=== PATIENT | male | born 1955 | race Caucasian/White ===

== ENCOUNTER 2016-11-25 13:24 | Emergency (ER) | payer OTHER ==
--- NOTE | 2016-11-25 16:59 | DIAGNOSTIC IMAGING REPORT ---
PROCEDURE: XR WRIST MIN 3 VIEWS - LEFT INDICATION: TRAUMA/INJURY, initial encounter TECHNIQUE: Five views COMPARISON: None. FINDINGS: Old avulsion fracture of the triquetrum and distal radius medially. No acute fracture. Scaphoid is normal. Joint spaces are normal. Soft tissue swelling over the dorsum of the wrist. IMPRESSION: 1. Soft tissue swelling 2. Old avulsion fractures of the triquetrum and distal radius
--- NOTE | 2016-11-25 17:02 | DIAGNOSTIC IMAGING REPORT ---
PROCEDURE: XR SHOULDER 2 OR MORE VW-RIGHT INDICATION: TRAUMA/INJURY TECHNIQUE: Four views COMPARISON: None. FINDINGS: No fracture dislocation. Mild AC joint and glenohumeral joint degenerative changes. Soft tissues are unremarkable. IMPRESSION: 1. Mild degenerative changes of the AC and glenohumeral joints
--- NOTE | 2016-11-25 17:27 | ED ORDER SUMMARY ---
..... Patient: MICHELLE GERBER OrderSheet [facility] VisitID: [id number] [place] [address] 61y, M Registration Date/Time: 11/25/2016 ORDER SHEET Weight: 86.1 kg (stated) Allergies: No Known Drug Allergy GENERAL ORDERS: Wrist 3 or 4V Left (in waiting room) Urgent (15:02 11/25/2016 Rodrigo Huff.Inder per protocol) (Ack 15:09 LTapper) (15:26 Merna R.N.) Shoulder 2V or more Right Urgent (16:35 11/25/2016 HBivens A.R.N.P.) (Ack 16:44 LTapper) (16:58 [facility]) Basilio Wrap (17:25 11/25/2016 HBivens A.R.N.P.) MEDICATION ORDERS: IV FLUIDS: ORDER SHEET NOTES: [Electronically signed by Renea Sharma.R.N.P. (18:23 11/25/2016)] [Electronically signed by Jabari Tinajero R.N. (19:22 11/25/2016)] [Electronically locked/signed by Jabari Tinajero R.N. (19:22 11/25/2016)]
--- NOTE | 2016-11-25 17:27 | ED CLINICAL REPORT ---
Clinical Report - Physicians/Mid Levels [facility] [address] [place] [address] 11/25/2016 13:27 Patient: MICHELLE GERBER Time Seen: 16:22; initial patient contact, initial documentation, patient care assumed. Arrived- By private vehicle. Historian- patient. HISTORY OF PRESENT ILLNESS Chief Complaint: FALL. Location of injuries- right shoulder and left wrist. The injury occurred yesterday. Fell while walking and landed on a concrete surface; slipped (slipped on ice). Occurred at work. The patient complains of moderate pain. No blow to the head, neck pain, loss of consciousness or seizure. Not dazed. REVIEW OF SYSTEMS No numbness, chest pain, difficulty breathing, weakness or abdominal pain. He sustained skin laceration but has no pain on weight bearing. All systems otherwise negative, except as recorded above. PAST HISTORY See nurses notes. PROBLEMS: Hypertension. --14:55 Giana Rausch RMal. ADDITIONAL SURGERIES: no known surgeries. SOCIAL HISTORY Never smoker. No alcohol use or drug use. No recent travel. Is a local resident. FAMILY HISTORY No significant family medical history. ADDITIONAL NOTES The nursing notes have been reviewed with agreement regarding the chief complaint, HPI, ROS, PMH and patient medications and allergies. PHYSICAL EXAM Vital Signs: 11/25/2016 14:51 BP: 152/99. HR: 85. RR: 18. O2 saturation: 96%. Temp: 98.1 F. Pain level now: 8/10. Have been reviewed as abnormal and appear to be correct. Hypertensive. Heart rate normal. Respiratory rate normal. Temperature normal. Oxygen saturation normal. Appearance: Alert. Oriented X3. No acute distress. Head: Head non-tender. No swelling of head. Eyes: Pupils equal, round and reactive to light. EOM intact. ENT: No dental injury. Pharynx normal. Neck: Painless ROM. Non-tender. CVS: Heart sounds normal. Pulses normal. Respiratory: Breath sounds normal. Chest nontender. Abdomen: No visible injury. Soft and nontender. Back: No tenderness. ROM normal. Skin: Skin intact. Skin warm and dry. Normal skin color. Normal skin turgor. Extremities: Abnormal inspection. Extremities not atraumatic. Right shoulder: mild tenderness located in the acromion process. Limited ROM due to pain (diminished abduction, flexion, extension and external and internal rotation). Neurovascular intact distally. No erythema, swelling, abrasion, ecchymosis or puncture wound. No foreign body or deformity. No joint effusion. Left wrist: mild tenderness and swelling located in the dorsal aspect of the wrist. Limited ROM secondary to pain (diminished flexion and extension, ulnar deviation and radial deviation). Neurovascular intact distally. No erythema, laceration, abrasion, ecchymosis or puncture wound. No foreign body or deformity. No joint effusion. Neuro: Oriented X 3. No motor deficit. No sensory deficit. LABS, X-RAYS, AND EKG X-Rays: Right shoulder. Left wrist negative. Rt Shoulder X-ray: (IMPRESSION: 1. Mild degenerative changes of the AC and glenohumeral joints Electronically Final signed by:David Sierra MD 11/25/2016 5:02:08 PM). The X-rays were interpreted by the radiologist and contemporaneously by me. Lt Wrist X-ray: (IMPRESSION: 1. Soft tissue swelling 2. Old avulsion fractures of the triquetrum and distal radius Electronically Final signed by:David Sierra MD 11/25/2016 4:59:20 PM). PROGRESS AND PROCEDURES Patient counseled in person regarding the patient's stable condition, test results and diagnosis. 17:15. Differential Diagnosis: Other possible considerations: fall, fx, sprains, contusions. Above considerations are based on history, physical exam and X-Ray data. Differential diagnosis was discussed with patient. Disposition: Discharged home in good and unchanged condition (17:27). Condition: good and stable. CLINICAL IMPRESSION Sprain of the right AC joint and left radiocarpal joint. Fall on same level by slipping. INSTRUCTIONS Wear elastic wrap (Basilio wrap) as directed for one weeks until better. Warnings: GENERAL WARNINGS: Return or contact your physician immediately if your condition worsens or changes unexpectedly, if not improving as expected, or if other problems arise. SPECIFICALLY, return if you develop numbness or incontinence of feces (loss of bowel control) or urine (loss of bladder control). trouble breathing, chest pain. Prescription Medications: Naproxen 500 mg tablets: take 1 orally every 12 hours as needed for pain. Dispense twenty (20). No refills. Follow-up: Follow up with your doctor in about one week even if well. Call for an appointment. Summary of care provided to patient. Understanding of the discharge instructions verbalized by patient. (Electronically signed by Renea Sharma A.R.N.P. 11/25/2016 18:23)
--- NOTE | 2016-11-25 17:27 | ED ORDER SUMMARY ---
..... Patient: MICHELLE GERBER OrderSheet [facility] VisitID: [id number] [place] [address] 61y, M Registration Date/Time: 11/25/2016 ORDER SHEET Weight: 86.1 kg (stated) Allergies: No Known Drug Allergy GENERAL ORDERS: Wrist 3 or 4V Left (in waiting room) Urgent (15:02 11/25/2016 Rodrigo Huff.Inder per protocol) (Ack 15:09 LTapper) (15:26 Merna R.N.) Shoulder 2V or more Right Urgent (16:35 11/25/2016 HBivens A.R.N.P.) (Ack 16:44 LTapper) (16:58 [facility]) Basilio Wrap (17:25 11/25/2016 HBivens A.R.N.P.) MEDICATION ORDERS: IV FLUIDS: ORDER SHEET NOTES: [Electronically signed by Renea Sharma.R.N.P. (18:23 11/25/2016)] [Electronically signed by Jabari Tinajero R.N. (19:22 11/25/2016)] [Electronically locked/signed by Jabari Tinajero R.N. (19:22 11/25/2016)]
--- NOTE | 2016-11-25 17:27 | ED NURSING NOTES ---
Clinical Report - Nurses [place] [address] [place] [address] 11/25/2016 13:27 Patient: MICHELLE GERBER TRIAGE Triage time 14:52. Acuity: LEVEL 4. Chief Complaint: FALL while walking, onto the ice. Alert. No acute distress. YAJAIRA COMA SCORE: [place] Coma Scale: 15- eyes open spontaneously (4); best verbal response- oriented x 4 (5); best motor response- obeys commands (6). --15:01 Giana Rausch R.N. 14:51 11/25/16. BP: 152/99. HR: 85. RR: 18. O2 saturation: 96% on room air. Temp: 98.1 F (oral). Pain level now: 06/29. --15:01 Giana Rausch R.N. Weight: 86.1 kg stated. Height/Length: 72 inches Per Patient. BMI: 25.8. --14:55 Giana Rausch R.N. Medications HCTZ 25 mg, daily. --14:55 Giana Rausch R.N. Allergies No Known Drug Allergy. --14:55 Giana Rausch R.N. History Arrived by private vehicle. Historian: patient. Unaccompanied. Primary physician (Sadi). Location of injuries: right shoulder and left wrist. This occurred yesterday. Occurred at work. SOCIAL HX: Smoker- current status unknown (no). No alcohol use or drug use. FALL RISK ASSESSMENT: Fall risk assessment completed. No fall risk identified. FUNCTIONAL ASSESSMENT: Functional assessment: no impairments noted. LEARNING NEEDS ASSESSMENT: The learning needs assessment revealed no barriers. --15:01 Giana Rausch R.N. PROBLEMS: Hypertension. --14:55 Giana Rausch R.N. ADDITIONAL SURGERIES: no known surgeries. Assessment GENERAL / NEURO / PSYCH: Alert. Oriented X 4. Appears in no acute distress. Patient appears calm and cooperative. ( left wrist swelling). RESPIRATORY: Respirations not labored. SKIN: Skin is warm and dry. --15:01 Giana Rausch R.N. Interventions ID band on patient. To treatment room. --15:01 Giana Rausch R.N. PHYSICAL ASSESSMENT Ambulatory to room. GENERAL / NEURO / PSYCH: Alert. Oriented X 4. Appears in pain. HEENT: Pupils equal, round and reactive to light. Head non-tender. RESPIRATORY: Respirations not labored. Chest nontender. Breath sounds within normal limits. CVS: Normal heart rate and rhythm. Pulses within normal limits. Capillary refill less than 2 seconds. GI / : Abdomen soft and nontender. EXTREMITIES: Extremities exhibit normal ROM. Neuro-vascular status intact to the extremity. Left wrist: tenderness and erythema. Dorsal left hand: tenderness, swelling and erythema. SKIN: Skin intact. Skin is warm and dry. --16:20 Jabari Tinajero R.N. NURSING PROGRESS NOTES 15:01 ice pack to left wrist. --15:02 Giana Rausch R.N. The initial plan of care for this patient includes an assessment with efforts to address patient positioning; impairment of the musculoskeletal system. Cold pack applied. Reassurance given. Call light placed in reach. Bed placed in lowest position. Brakes of bed on. --16:23 Jabari Tinajero R.N. 16:20 11/25/16. BP: 145/92. HR: 85. RR: 18. O2 saturation: 98%. Temp: 98.4 F. Pain level now 8/10. --16:23 Jabari Tinajero R.N. ( rishi wrap applied + good csm noted. Care instructions given all questions answered.). --17:45 Jabari Tinajero R.N. DISPOSITION / DISCHARGE Departure time: 17:40 Nov 25 2016. Condition at departure: improved. No learning barriers present. Discharge instructions provided and reviewed with the patient. Reviewed warnings. Reviewed medication(s). Treatments reviewed. Patient verbalized understanding. Written instructions provided in British. The patient was discharged home. He left the Emergency Department ambulatory and via private vehicle. Family member driving. --17:44 Jabari Tinajero R.N. 17:40 11/25/16. BP: 148/90. HR: 82. RR: 18. O2 saturation: 100%. Temp: 98.4 F. Pain level now 12/30. --17:44 Jabari Tinajero R.N. Locked/Released at 11/25/2016 19:22 by Jabari Tinajero R.N.
--- NOTE | 2016-11-25 19:23 | ED MAR SUMMARY ---
..... Medication Administration Record [facility] [address] [place], [place] [id number] Patient: MICHELLE GERBER Visit ID: [id number] 61y, M Weight: 86.1 kg Height/Length: 72 in BMI: 25.8 ALLERGIES: No Known Drug Allergy
--- NOTE | 2016-11-25 19:23 | ED MED RECONCILIATION SUMMARY ---
Patient: MICHELLE GERBER Medication Reconciliation Report [facility] VisitID: [id number] [address] [place] [address] 61y, M Registration Date/Time: 11/25/2016 Weight: 86.1 kg Height/Length: 72 in. BMI: 25.8 ALLERGIES: No Known Drug Allergy The patient's Home Medications are listed below: THE FOLLOWING MEDICATIONS NEED TO BE RECONCILED: HCTZ 25 mg, daily The source(s) of the original Home Medication information: Not obtained. The following Medications were given to the patient in the Emergency Department: None. The following Medications were prescribed to the patient: Naproxen 500 mg tablets: take 1 orally every 12 hours as needed for pain. Dispense twenty (20). No refills. -- Renea Sharam A.R.N.P.
--- NOTE | 2016-11-25 19:23 | ED DISCHARGE INSTRUCTIONS ---
Patient: MICHELLE GERBER General Instructions [facility] VisitID: [id number] [place] [address] 61y, M Registration Date/Time: 11/25/2016 Sprain of the right AC joint and left radiocarpal joint. Fall on same level by slipping. INSTRUCTIONS Wear elastic wrap (Basilio wrap) as directed for one weeks until better. Warnings: GENERAL WARNINGS: Return or contact your physician immediately if your condition worsens or changes unexpectedly, if not improving as expected, or if other problems arise. SPECIFICALLY, return if you develop numbness or incontinence of feces (loss of bowel control) or urine (loss of bladder control). trouble breathing, chest pain. Prescription Medications: Naproxen 500 mg tablets: take 1 orally every 12 hours as needed for pain. Dispense twenty (20). No refills. Follow-up: Follow up with your doctor in about one week even if well. Call for an appointment. Summary of care provided to patient. Understanding of the discharge instructions verbalized by patient. ADDITIONAL INFORMATION Mechanical Fall You have had a fall today. It appears that the cause is mechanical. That means that you slipped, tripped or lost your balance. If your fall had been due to fainting or a seizure, further tests would be required. Home Care: Rest today and resume your normal activities when you are feeling back to normal. If you were injured during the fall, follow the advice from your doctor regarding care of your injury. You may use acetaminophen (Tylenol) or ibuprofen (Motrin, Advil) to control pain, unless another pain medicine was prescribed. [NOTE: If you have chronic liver or kidney disease or ever had a stomach ulcer or GI bleeding, talk with your doctor before using these medicines.] Fall Prevention: Was there anything that caused your fall that can be fixed, removed, or replaced? Make your home safe by keeping walkways clear of objects you may trip over. Use non-slip pads under rugs. Do not walk in poorly lit areas. Do not stand on chairs or wobbly ladders. Use caution when reaching overhead or looking upward. This position can cause a loss of balance. Be sure your shoes fit properly, have non-slip bottoms and are in good condition. Be cautious when going up and down curbs, and walking on uneven sidewalks. If your balance is poor, consider using a cane or walker. Stay as active as you can. Balance, flexibility, strength, and endurance all come from exercise. They all play a role in preventing falls. Follow Up with your doctor or as advised by our staff. Get Prompt Medical Attention if any of the following occur: Repeated mechanical falls, or unexplained falls Dizziness, fainting or seizure Severe headache Chest pain or shortness of breath Palpitations (very rapid or very slow or irregular heartbeat) Blood in vomit, stools (black or red color) Weakness of an arm or leg or one side of the face Difficulty with speech or vision Shoulder Sprain A sprain is a stretching or tearing of the ligaments that hold a joint together. A sprain may take up to six weeks to fully heal, depending on how severe it is. Moderate to severe shoulder sprains are treated with a sling or shoulder immobilizer. Minor sprains can be treated without any special support. Home care The following guidelines will help you care for your injury at home: If a sling was provided, leave it in place for the time advised by your doctor. If you are unsure how long to wear it, ask for advice. If the sling becomes loose, adjust it so that your forearm is level with the ground and the shoulder feels well supported. Apply an ice pack (ice cubes in a plastic bag, wrapped in a thin towel) over the injured area for 20 minutes every 12 hours the first day. Continue with ice packs 34 times a day for the next two days, then as needed for the relief of pain and swelling. You may use acetaminophen or ibuprofen to control pain, unless another pain medicine was prescribed.If you have chronic liver or kidney disease or ever had a stomach ulcer or GI bleeding, talk with your doctor before using these medicines. Shoulder joints become stiff if left in a sling for too long. Range of motion exercises should usually be started within the first ten days after injury. Consult your doctor on what type of exercises to do and how soon to start. Follow-up care Follow up with your doctor as directed. Any X-rays you had today dont show any broken bones, breaks, or fractures. Sometimes fractures dont show up on the first X-ray. Bruises and sprains can sometimes hurt as much as a fracture. These injuries can take time to heal completely. If your symptoms dont improve or they get worse, talk with your doctor. You may need a repeat X-ray. When to seek medical care Get prompt medical attention if any of the following occur: Increasing shoulder pain or arm swelling Fingers become cold, blue, numb, or tingly Large amount of bruising of the shoulder or upper arm Sprain, Wrist A sprain is an injury to the ligaments or capsule that holds a joint together. There are no broken bones. Most sprains take about three to six weeks to heal. If the ligament is completely torn (severe sprain), it can take months to recover. Most wrist sprains are treated with a splint, wrist brace or elastic wrap for support. Severe sprains may require surgery. Home care The following guidelines will help you care for your injury at home: 1) Keep your arm elevated to reduce pain and swelling. This is very important during the first 48 hours. 2) Apply an ice pack (ice cubes in a plastic bag, wrapped in a towel) over the injured area for 20 minutes every 12 hours the first day. Continue with ice packs 34 times a day for the next two days, then as needed for the relief of pain and swelling. 3) You may use acetaminophen or ibuprofen to control pain, unless another pain medicine was prescribed.If you have chronic liver or kidney disease or ever had a stomach ulcer or GI bleeding, talk with your doctor before using these medicines. 4) If you were given a splint or brace, wear it for the time advised by your doctor. Follow-up care Follow up with your doctor as advised. Any X-rays you had today dont show any broken bones, breaks, or fractures. Sometimes fractures dont show up on the first X-ray. Bruises and sprains can sometimes hurt as much as a fracture. These injuries can take time to heal completely. If your symptoms dont improve or they get worse, talk with your doctor. You may need a repeat X-ray. When to seek medical care Get prompt medical attention if any of the following occur: Pain or swelling increases Fingers or hand becomes cold, blue, numb, or tingly Basilio Wrap An "Basilio Bandage" refers to any elastic bandage wrap (2-6" wide). This is used to apply support and compression to an arm or leg. It will help prevent or reduce swelling also. When applying the bandage, it should not be stretched too tightly. A tight Basilio Wrap will reduce circulation and cause tingling or numbness in the hand or foot. It may increase the pain under the bandage. If you get these symptoms, remove the wrap and rest the limb. Symptoms should go away within 1-2 hours. Once symptoms go away, reapply the bandage with less stretch. If symptoms do not go away after 1-2 hours with the bandage off, call your doctor or return to this facility promptly. Naproxen Sodium Oral tablet What is this medicine? NAPROXEN (na PROX en) is a non-steroidal anti-inflammatory drug (NSAID). It is used to reduce swelling and to treat pain. This medicine may be used for dental pain, headache, or painful monthly periods. It is also used for painful joint and muscular problems such as arthritis, tendinitis, bursitis, and gout. How should I use this medicine? Take this medicine by mouth with a glass of water. Follow the directions on the prescription label. Take it with food if your stomach gets upset. Try to not lie down for at least 10 minutes after you take it. Take your medicine at regular intervals. Do not take your medicine more often than directed. Long-term, continuous use may increase the risk of heart attack or stroke. A special MedGuide will be given to you by the pharmacist with each prescription and refill. Be sure to read this information carefully each time. Talk to your shop tech regarding the use of this medicine in children. Special care may be needed. What side effects may I notice from receiving this medicine? Side effects that you should report to your doctor or health director of healthcare systems as soon as possible: black or bloody stools, blood in the urine or vomit blurred vision chest pain difficulty breathing or wheezing nausea or vomiting severe stomach pain skin rash, skin redness, blistering or peeling skin, hives, or itching slurred speech or weakness on one side of the body swelling of eyelids, throat, lips unexplained weight gain or swelling unusually weak or tired yellowing of eyes or skin Side effects that usually do not require medical attention (report to your doctor or health director of healthcare systems if they continue or are bothersome): constipation headache heartburn What may interact with this medicine? alcohol aspirin cidofovir diuretics lithium methotrexate other drugs for inflammation like ketorolac or prednisone pemetrexed probenecid warfarin What if I miss a dose? If you miss a dose, take it as soon as you can. If it is almost time for your next dose, take only that dose. Do not take double or extra doses. Where should I keep my medicine? Keep out of the reach of children. Store at room temperature between 15 and 30 degrees C (59 and 86 degrees F). Keep container tightly closed. Throw away any unused medicine after the expiration date. What should I tell my health care provider before I take this medicine? They need to know if you have any of these conditions: asthma cigarette smoker drink more than 3 alcohol containing drinks a day heart disease or circulation problems such as heart failure or leg edema (fluid retention) high blood pressure kidney disease liver disease stomach bleeding or ulcers an unusual or allergic reaction to naproxen, aspirin, other NSAIDs, other medicines, foods, dyes, or preservatives or trying to get breast-feeding What should I watch for while using this medicine? Tell your doctor or health director of healthcare systems if your pain does not get better. Talk to your doctor before taking another medicine for pain. Do not treat yourself. This medicine does not prevent heart attack or stroke. In fact, this medicine may increase the chance of a heart attack or stroke. The chance may increase with longer use of this medicine and in people who have heart disease. If you take aspirin to prevent heart attack or stroke, talk with your doctor or health director of healthcare systems. Do not take other medicines that contain aspirin, ibuprofen, or naproxen with this medicine. Side effects such as stomach upset, nausea, or ulcers may be more likely to occur. Many medicines available without a prescription should not be taken with this medicine. This medicine can cause ulcers and bleeding in the stomach and intestines at any time during treatment. Do not smoke cigarettes or drink alcohol. These increase irritation to your stomach and can make it more susceptible to damage from this medicine. Ulcers and bleeding can happen without warning symptoms and can cause . You may get drowsy or dizzy. Do not drive, use machinery, or do anything that needs mental alertness until you know how this medicine affects you. Do not stand or sit up quickly, especially if you are an older patient. This reduces the risk of dizzy or fainting spells. This medicine can cause you to bleed more easily. Try to avoid damage to your teeth and gums when you brush or floss your teeth. You have been given the following additional information: Fall, Mechanical Shoulder Sprain Wrist Sprain Basilio Wrap Naproxen Sodium Oral tablet (Electronically signed by Renea Sharma A.R.N.P. 11/25/2016 18:23)
--- NOTE | 2016-11-25 19:23 | ED MED RECONCILIATION SUMMARY ---
Patient: MICHELLE GERBER Medication Reconciliation Report [facility] VisitID: [id number] [place] [address] 61y, M Registration Date/Time: 11/25/2016 Weight: 86.1 kg Height/Length: 72 in. BMI: 25.8 ALLERGIES: No Known Drug Allergy The patient's Home Medications are listed below: THE FOLLOWING MEDICATIONS NEED TO BE RECONCILED: HCTZ 25 mg, daily The source(s) of the original Home Medication information: Not obtained. The following Medications were given to the patient in the Emergency Department: None. The following Medications were prescribed to the patient: Naproxen 500 mg tablets: take 1 orally every 12 hours as needed for pain. Dispense twenty (20). No refills. -- Renea Sharma A.R.N.P.
--- NOTE | 2016-11-25 19:23 | ED MAR SUMMARY ---
..... Medication Administration Record [facility] [address] [place], [place] [id number] Patient: MICHELLE GERBER Visit ID: [id number] 61y, M Weight: 86.1 kg Height/Length: 72 in BMI: 25.8 ALLERGIES: No Known Drug Allergy
== END 2016-11-25 17:45 | disposition home or self-care (01) ==
LOC: ED SRH 13:24
DX: S43.51XA Sprain of right acromioclavicular joint, initial encounter (principal); S63.522A Sprain of radiocarpal joint of left wrist, initial encounter; W01.0XXA Fall on same level from slipping, tripping and stumbling without subsequent striking against object, initial encounter; Y93.01 Activity, walking, marching and hiking; Y92.9 Unspecified place or not applicable; Y99.0 Civilian activity done for income or pay; I10 Essential (primary) hypertension; Z79.899 Other long term (current) drug therapy